=== PATIENT | female | born 1965 | race Hispanic/Latino ===

== ENCOUNTER → 2019-04-25 | Outpatient (CLI) | payer OTHER | END | disposition home or self-care (01) | LOC: RAH 09:33 | PROVIDERS: ATTEND Family Medicine | DX: N60.01 Solitary cyst of right breast (principal); R59.0 Localized enlarged lymph nodes | CPT/HCPCS: 76641; 77065 ==

== ENCOUNTER 2019-05-25 17:52 | Emergency (ER) | payer OTHER ==
[2019-05-25] MEDS ORDERED: KETOROLAC TROMETHAMINE 60 MG/2 ML VIAL ONE (18:30)
[2019-05-25] MEDS ORDERED: DEXAMETHASONE SOD PHOSPHATE 10MG/ML 1ML VIAL ONE (18:30)
== END 2019-05-25 19:22 | disposition home or self-care (01) ==
LOC: EDH 17:52
DX: H69.82 Other specified disorders of Eustachian tube, left ear (principal); E78.00 Pure hypercholesterolemia, unspecified; K21.9 Gastro-esophageal reflux disease without esophagitis
CPT/HCPCS: 96372 ×2; 99284; J1100; J1885